=== PATIENT | female | born 1960 | race Caucasian/White ===

== ENCOUNTER → 2017-06-08 16:41 | Outpatient (CLI) | payer MEDICARE ==
[2011-02-03 09:42] VITALS: BMI 30.6
== END | disposition home or self-care (01) ==
LOC: D.MAMMO 11:30
DX: Z12.31 Encounter for screening mammogram for malignant neoplasm of breast (principal)

== ENCOUNTER → 2017-07-28 20:37 | Outpatient (CLI) | payer MEDICARE ==
[2011-02-03 09:42] VITALS: BMI 30.6
== END | disposition home or self-care (01) ==
LOC: D.MAMMO 15:00
DX: R92.8 Other abnormal and inconclusive findings on diagnostic imaging of breast (principal)